=== PATIENT | female | born 1955 | race Caucasian/White ===

== ENCOUNTER 2017-07-18 18:37 | Emergency (ER) | payer BC ==
[2017-07-18] MEDS ORDERED: ONDANSETRON HCL IV 4 MG/2 ML VIAL IVP ONE (19:44)
[2017-07-18] MEDS ORDERED: 0.9 % SODIUM CHLORIDE 1000ML 1,000 ML IV SCH (19:45)
--- NOTE | 2017-07-18 19:49 | Emergency Department Record ---
History of Present Illness - General Chief Complaint: Dizziness Stated Complaint: DOESN'T FEEL WELL/HIGH SUGAR Time Seen by Provider: 07/18/17 19:28 Source: Patient Mode of Arrival: Ambulatory Limitations: No limitations - History of Present Illness Initial Comments: 61 yo female presents to ED with a CC of nausea and "elevated blood sugar" that she has been unable to drop at home with her home diabetes medications (januvia , nagelitide). Patient denies chest pain, difficulty breathing, or abdominal pain symptoms. Patient denies fevers, chills, or recent illness. 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 MD Complaint: Other Onset/Timin -: Hour(s) Timing: Sudden onset, Constant Description: Lightheadedness History of Same: Yes History of Trauma: Yes Severity: Mild Improves With: Nothing Worsens With: Nothing - [place] Coma Scale Eye Response: (4) Open spontaneously Motor Response: (6) Obeys commands Verbal Response: (5) Oriented Yunior Total: 15 - Related Data Home Medications Medication Instructions Recorded Confirmed Last Taken Clonidine HCl 0.1 mg PO TID 07/18/17 07/18/17 Unknown Folic Acid [Folic Acid] 1 mg PO DAILY 07/18/17 07/18/17 Unknown Levothyroxine Sodium [Synthroid] 50 mcg PO DAILY 07/18/17 07/18/17 Unknown Nateglinide [Starlix] 120 mg PO ASDIR 07/18/17 07/18/17 Unknown Pentamidine Isethionate [Nebupent] 300 mg PO DAILY 07/18/17 07/18/17 Unknown Prednisone [Prednisone 5Mg] 5 mg PO DAILY 07/18/17 07/18/17 Unknown Sitagliptin Phosphate [Januvia] 25 mg PO DAILY 07/18/17 07/18/17 Unknown Previous Rx's Medication Instructions Recorded Promethazine HCl [Phenergan] 25 mg PO Q6H PRN #15 tablet 07/18/17 Allergies Allergy/AdvReac Type Severity Reaction Status Date / Time budesonide [From Symbicort] AdvReac DIZZINESS Verified 07/18/17 19:30 formoterol [From Symbicort] AdvReac DIZZINESS Verified 07/18/17 19:30 ibuprofen [From Motrin] AdvReac NAUSEA Verified 07/18/17 19:30 morphine AdvReac NAUSEA Verified 07/18/17 19:30 sulfamethoxazole AdvReac NAUSEA Verified 07/18/17 19:30 [From Bactrim] trimethoprim [From Bactrim] AdvReac NAUSEA Verified 07/18/17 19:30 Travel Screening - Travel/Exposure Within Last 30 Days Have you traveled within the last 30 days?: No Review of Systems Constitutional: Denies: Chills, Fever, Malaise, Night sweats Eyes: Denies: Eye discharge, Eye pain ENT: Denies: Congestion, Ear pain, Epistaxis Respiratory: Denies: Cough, Dyspnea Cardiovascular: Denies: Chest pain, Dyspnea on exertion Endocrine: Denies: Fatigue, Heat or cold intolerance Gastrointestinal: Reports: Nausea. Denies: Constipation, Vomiting Genitourinary: Denies: Incontinence, Retention Musculoskeletal: Denies: Arthralgia, Back pain, Gout, Joint swelling Skin: Denies: Bruising, Change in color Neurological: Denies: Abnormal gait, Confusion, Headache, Tingling Psychiatric: Denies: Anxiety Hematological/Lymphatic: Denies: Anemia, Blood Clots Past Medical History - SOCIAL HISTORY Smoking Status: Never smoker Alcohol Use: None Drug Use: None - RESPIRATORY Hx Respiratory Disorders: Yes Comment:: Bilateral Lung Transplant (08/2009) r/t pulmonary fibrosis - CARDIOVASCULAR Hx Cardio Disorders: Yes Hx Hypertension: Yes Comment:: murmur - NEURO Hx Neuro Disorders: No - GI Hx GI Disorders: Yes Hx Reflux: Yes - Hx Genitourinary Disorders: Yes Hx Renal Disease: Yes (CKD stage 4) - ENDOCRINE Hx Endocrine Disorders: Yes Hx Diabetes: Yes (DM2) Hx Thyroid Disease: Yes (Hypo) - MUSCULOSKELETAL Hx Musculoskeletal Disorders: No - PSYCH Hx Psych Problems: No - HEMATOLOGY/ONCOLOGY Hx Hematology/Oncology Disorders: Yes Hx Cancer: Yes (Precancerous skin (surgically removed)) Hx Chemotherapy: No Hx Radiation Therapy: No Family Medical History Any Significant Family History?: Yes Hx Diabetes: Father Hx HTN: Father Hx Resp Disorders: Mother, Brother/Sister *Resp Comment: Pulmonary Fibrosis Physical Exam - General General Appearance: Alert, Oriented x3, Cooperative, Moderate distress Limitations: No limitations - Head Head exam: Atraumatic, Normocephalic, Normal inspection Head exam detail: negative: Abrasion, Contusion, Mack's sign, General tenderness, Hematoma, Laceration - Eye Eye exam: Normal appearance. negative: Conjunctival injection, Periorbital swelling, Periorbital tenderness, Scleral icterus - ENT Ear exam: negative: Auricular hematoma, Auricular trauma Nasal Exam: negative: Active bleeding, Discharge, Dried blood Mouth exam: negative: Drooling, Laceration, Tongue elevation - Neck Neck exam: Normal inspection. negative: Meningismus, Tenderness - Respiratory Respiratory exam: Normal lung sounds bilaterally. negative: Respiratory distress, Rhonchi, Stridor, Wheezes - Cardiovascular Cardiovascular Exam: Regular rate, Normal rhythm, Normal heart sounds - GI/Abdominal GI/Abdominal exam: Soft. negative: Rebound, Rigid, Tenderness - Rectal Rectal exam: Deferred - exam: Deferred - Extremities Extremities exam: Normal inspection. negative: Calf tenderness, Pedal edema, Tenderness - Back Back exam: Denies: CVA tenderness (R), CVA tenderness (L) - Neurological Neurological exam: Alert, Normal gait, Oriented X3 - Psychiatric Psychiatric exam: Normal affect, Normal mood - Skin Skin exam: Normal color. negative: Abrasion Type of lesion: negative: abrasion Course Vital Signs 07/18/17 19:29 Temperature 98.4 F Pulse Rate 76 Respiratory 18 Rate Blood Pressure 187/81 Pulse Ox 98 - Reevaluation(s) Reevaluation #1: 07/18/17 20:15 EKG: NSR 70 Normal axis Normal intervals Artifact V4-V5, no acute ST-T wave changes Reevaluation #2: 07/18/17 20:50 Labs reviewed, Hgb 10.2, BUN 31/Creatinine 1.9 (at baseline). Troponin is negative, labs are otherwise grossly unremarkable for an acute process. Reevaluation #3: 07/18/17 20:54 Patient reassessed and reports that she is feeling much better. EKG and Troponin fail to demonstrate an acute cardiac etiology for her symptoms, and her symptoms are greatly improved with Phenergan. Patient was updated on all results and appears stable for discharge at this time with phenergan at home for her symptoms. Medical Decision Making - Lab Data Result diagrams: 07/18/17 20:01 07/18/17 20:01 Lab Results 07/18/17 Range/Units 19:19 POC Glucose 147 H (70-110) mg/dL Disposition Disposition: Discharge Clinical Impression: Nausea Hyperglycemia due to type 2 diabetes mellitus Qualifiers: Diabetes mellitus mcc insulin use: unspecified mcc insulin use status Qualified Code(s): E11.65 - Type 2 diabetes mellitus with hyperglycemia Disposition: Home, Self-Care Condition: (2) Stable Instructions: Acute Nausea and Vomiting (ED) Additional Instructions: Return to ED if your symptoms worsen or if you have any concerns. Phenergan as directed. Follow-up with your family doctor in 2-3 days as directed. Prescriptions: Promethazine HCl [Phenergan] 25 mg PO Q6H PRN #15 tablet PRN Reason: Nausea/Vomiting Forms: Patient Portal Access Time of Disposition: 20:57 Quality - Quality Measures Quality Measures: N/A - Blood Pressure Screening Does Patient Have Any of the Following: Active Dx of HTN Blood Pressure Classification: Pre-Hypertensive BP Reading Systolic Measurement: 175 Diastolic Measurement: 87 Screening for High Blood Pressure: Patient Exclusion, Hx of HTN [[id number]]
[2017-07-18 20:12] LABS: BASO % 0.2 % (0-6); GRAN % 72.2 % (47-80); HEMATOCRIT 28.9 % (35.0-47.0); HEMOGLOBIN 10.2 gm/dl (11.6-16.0); LYMPH % 17.6 % (16-45); MEAN CELL VOLUME 96.7 fl (81-97); MEAN CORPUSCULAR HEMOGLOBIN 34.1 pg (27-33); MEAN CORPUSCULAR HGB CONC 35.3 g/dl (32-36); MEAN PLATELET VOLUME 8.5 fl (7.4-10.4); PLATELET COUNT 185 K/uL (130-400); RED BLOOD COUNT 2.99 M/uL (3.80-5.40); RED CELL DISTRIBUTION WIDTH 13.3 % (11.5-14.5)
[2017-07-18] MEDS ORDERED: PROMETHAZINE HCL 12.5 MG in 0.9 % SODIUM CHLORIDE 100ML 100 ML IVPB ONE (20:31)
[2017-07-18 20:32] LABS: ACETONE,SERUM NEGATIVE (NEGATIVE)
[2017-07-18 20:32] LABS: URINE APPEARANCE CLEAR; URINE BILIRUBIN NEGATIVE (NEGATIVE); URINE BLOOD TRACE-I (NEGATIVE); URINE COLOR YELLOW; URINE GLUCOSE (UA) NEGATIVE (NEGATIVE); URINE KETONE NEGATIVE (NEGATIVE); URINE LEUKOCYTE ESTERASE NEGATIVE (NEGATIVE); URINE NITRITE NEGATIVE (NEGATIVE); URINE PROTEIN NEGATIVE (NEGATIVE); URINE UROBILINOGEN 0.2 E.U./dL (0.20 - 1.00)
[2017-07-18 20:34] LABS: ALB/GLOB RATIO 1.6 (1.1-1.8); ALBUMIN 4.1 g/dL (4.0-5.0); ALKALINE PHOSPHATASE 26 U/L (35-104); ALT/SGPT 11 U/L (<33); AST/SGOT 16 U/L (10.0-35.0); BLOOD UREA NITROGEN 31 mg/dL (8-23); CREATININE 1.9 mg/dL (0.5-0.9); EST GLOMERULAR FILTRATION RATE 28 mL/min; GLUCOSE,RANDOM 141 mg/dL (74-109); TOTAL PROTEIN 6.7 g/dL (6.6-8.7)
[2017-07-18 20:41] LABS: URINE EPITHELIAL CELLS 0 - 2 (FEW); URINE RBC 0 - 2 (NONE SEEN); URINE WBC 0 - 2 (0-2/hpf)
[2017-07-18] MEDS ORDERED: PROMETHAZINE HCL 25 MG TABLET PO ONE (20:53)
== END 2017-07-18 21:08 | disposition home or self-care (01) ==
LOC: ER 18:37
DX: E11.65 Type 2 diabetes mellitus with hyperglycemia (principal); R11.0 Nausea; R42 Dizziness and giddiness; I10 Essential (primary) hypertension; Z94.2 Lung transplant status
CPT/HCPCS: 99284 ×2; 96374; 96375; 82800; 85025; 84484; 80053; 36416; 81001; 82009; 82948; 93005; 93010; J2405; J2550; J7030

== ENCOUNTER 2017-12-16 15:00 | Emergency (ER) | payer BC | END 2017-12-16 15:10 | disposition left against medical advice (07) | LOC: ER 15:00 | DX: Z53.20 Procedure and treatment not carried out because of patient's decision for unspecified reasons (principal) ==

== ENCOUNTER 2019-07-30 11:47 | Emergency (ER) | payer BC ==
--- NOTE | 2019-07-30 12:29 | Emergency Department Record ---
History of Present Illness - General Chief Complaint: Hypertension Stated Complaint: HIGH BLOOD PRESSURE Time Seen by Provider: 07/30/19 11:53 Source: Patient, RN notes reviewed Mode of Arrival: Ambulatory - History of Present Illness Initial Comments: hypertension 212/85 and she is taking clonidine 0.3 TID and she has stage 4 kidney disease and a lung transplant in 2008 and her primary is Dr Pinedo at [facility] and the nurse in the office said to go to the ED. she is using lidocaine and tylenol for chest wall pain diagnosised at the [facility]. PMH DM ,hypothyroidism, Patient said she was at the [facility] 2 weeks ago and she was told she was anemic and hg 8 and she was placed on iron Timing: Awoke with symptoms History of Same: Yes History of Trauma: No Severity: Moderate Improves With: Nothing Worsens With: Nothing Associated Symptoms: Shortness of breath - [place] Coma Scale Eye Response: (4) Open spontaneously Motor Response: (6) Obeys commands Verbal Response: (5) Oriented Yunior Total: 15 - Related Data Home Medications Medication Instructions Recorded Confirmed Last Taken Acyclovir 200 mg PO BID 07/30/19 07/30/19 Unknown Azithromycin 250 mg PO ASDIR 07/30/19 07/30/19 Unknown Calcium Carbonate/Vitamin D3 1 each PO DAILY 07/30/19 07/30/19 Unknown [Calcium 600 + Vit D Tablet] Insulin Aspart [Novolog] 7 unit SQ WMEALS 07/30/19 07/30/19 07/30/19 Insulin Glargine,Hum.rec.anlog 24 unit SQ QAM 07/30/19 07/30/19 07/30/19 [Lantus Solostar] Itraconazole [Sporanox] 200 mg PO DAILY 07/30/19 07/30/19 Unknown Linagliptin [Tradjenta] 5 mg PO DAILY 07/30/19 07/30/19 Unknown Magnesium Oxide [Magnesium] 250 mg PO DAILY 07/30/19 07/30/19 Unknown Pentamidine Isethionate [Nebupent] 300 mg IH MONTHLY 07/30/19 07/30/19 Unknown Tacrolimus [Prograf] 0.5 mg PO QAM 07/30/19 07/30/19 Unknown Allergies Allergy/AdvReac Type Severity Reaction Status Date / Time budesonide [From Symbicort] AdvReac DIZZINESS Verified 07/30/19 11:54 formoterol [From Symbicort] AdvReac DIZZINESS Verified 07/30/19 11:54 ibuprofen [From Motrin] AdvReac NAUSEA Verified 07/30/19 11:54 morphine AdvReac NAUSEA Verified 07/30/19 11:54 sulfamethoxazole AdvReac NAUSEA Verified 07/30/19 11:54 [From Bactrim] trimethoprim [From Bactrim] AdvReac NAUSEA Verified 07/30/19 11:54 Travel Screening - Travel/Exposure Within Last 30 Days Have you traveled within the last 30 days?: No Review of Systems Reviewed: No additional complaints except as noted below Constitutional: Reports: As per HPI. Denies: Chills, Fever, Malaise, Night sweats, Weakness, Weight change Eyes: Reports: As per HPI. Denies: Eye discharge, Eye pain, Photophobia, Vision change ENT: Reports: As per HPI. Denies: Congestion, Dental pain, Ear pain, Epistaxis, Hearing loss, Throat pain Respiratory: Reports: As per HPI. Denies: Cough, Dyspnea, Hemoptysis, Stridor, Wheezes Cardiovascular: Reports: As per HPI, Chest pain. Denies: Arrhythmia, Dyspnea on exertion, Edema, Murmurs, Orthopnea, Palpitations, Paroxysmal nocturnal dyspnea, Rheumatic Fever, Syncope Endocrine: Reports: As per HPI. Denies: Fatigue, Heat or cold intolerance, Polydipsia, Polyuria Gastrointestinal: Reports: As per HPI. Denies: Abdominal pain, Constipation, Diarrhea, Hematemesis, Hematochezia, Melena, Nausea, Vomiting Genitourinary: Reports: As per HPI. Denies: Abnormal menses, Discharge, Dyspareunia, Dysuria, Frequency, Hematuria, Incontinence, Retention, Urgency Musculoskeletal: Reports: As per HPI. Denies: Arthralgia, Back pain, Gout, Joint swelling, Myalgia, Neck pain Skin: Reports: As per HPI. Denies: Bruising, Change in color, Change in hoffmann ir/nails, Lesions, Pruritus, Rash Neurological: Reports: As per HPI. Denies: Abnormal gait, Confusion, Headache, Numbness, Paresthesias, Seizure, Tingling, Tremors, Vertigo, Weakness Psychiatric: Reports: As per HPI. Denies: Anxiety, Auditory hallucinations, Depression, Homicidal thoughts, Suicidal thoughts, Visual hallucinations Hematological/Lymphatic: Reports: As per HPI. Denies: Anemia, Blood Clots, Easy bleeding, Easy bruising, Swollen glands Past Medical History - SOCIAL HISTORY Smoking Status: Never smoker Alcohol Use: None Drug Use: None - RESPIRATORY Hx Respiratory Disorders: Yes Comment:: Bilateral Lung Transplant (08/2009) r/t pulmonary fibrosis - CARDIOVASCULAR Hx Cardio Disorders: Yes Hx Hypertension: Yes Comment:: murmur - NEURO Hx Neuro Disorders: No - GI Hx GI Disorders: Yes Hx Reflux: Yes - Hx Genitourinary Disorders: Yes Hx Renal Disease: Yes (CKD stage 4) - ENDOCRINE Hx Endocrine Disorders: Yes Hx Diabetes: Yes (DM2) Hx Thyroid Disease: Yes (Hypo) - MUSCULOSKELETAL Hx Musculoskeletal Disorders: No - PSYCH Hx Psych Problems: No - HEMATOLOGY/ONCOLOGY Hx Hematology/Oncology Disorders: Yes Hx Cancer: Yes (Precancerous skin (surgically removed)) Hx Chemotherapy: No Hx Radiation Therapy: No Family Medical History Any Significant Family History?: Yes Hx Diabetes: Father Hx HTN: Father Hx Resp Disorders: Mother, Brother/Sister *Resp Comment: Pulmonary Fibrosis Physical Exam - General General Appearance: Alert, Oriented x3, Cooperative, No acute distress - Head Head exam: Normal inspection - Eye Eye exam: Normal appearance, PERRL Pupils: Normal accommodation - ENT ENT exam: Normal exam, Mucous membranes moist, Normal external ear exam, Normal orophraynx, TM's normal bilaterally Ear exam: Normal external inspection. negative: External canal tenderness Nasal Exam: Normal inspection. negative: Discharge, Sinus tenderness Mouth exam: Normal external inspection, Tongue normal Teeth exam: Normal inspection. negative: Dental caries Throat exam: Normal inspection. negative: Tonsillar erythema, Tonsillar exudate - Neck Neck exam: Normal inspection, Full ROM. negative: Tenderness - Respiratory Respiratory exam: Normal lung sounds bilaterally. negative: Respiratory distress - Cardiovascular Cardiovascular Exam: Regular rate, Normal rhythm, Normal heart sounds - GI/Abdominal GI/Abdominal exam: Soft, Normal bowel sounds. negative: Tenderness - Rectal Rectal exam: Deferred - exam: Deferred - Extremities Extremities exam: Normal inspection, Full ROM, Normal capillary refill. negative: Tenderness - Back Back exam: Reports: Normal inspection, Full ROM. Denies: Muscle spasm, Rash noted, Tenderness - Neurological Neurological exam: Alert, Normal gait, Oriented X3, Reflexes normal - Psychiatric Psychiatric exam: Normal affect, Normal mood - Skin Skin exam: Dry, Intact, Normal color, Warm Course Vital Signs 07/30/19 11:50 Temperature 97.7 F Pulse Rate 95 H Respiratory 20 Rate Blood Pressure 227/86 Pulse Ox 100 - Reevaluation(s) Reevaluation #1: while in the ED after the hydralazine shot she developed redness in her leg and they felt hot and she had chest pressure and palpations and EKG done with labs and her trop is elevated. 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 Mo and Dr Bhagat and will admit at [facility] when bed is available. Dr. Mo is accepting 07/30/19 16:24 Medical Decision Making - Data Complexity MDM Data: Labs Ordered and/or Reviewed (trop elevated 0.035 indeterminate,creat 3.0, hg 8.8), EKG Ordered and/or Reviewed (nsr, nonspecific st changes ) - Lab Data Result diagrams: 07/30/19 11:55 07/30/19 11:55 Disposition Clinical Impression: Elevated troponin Chest pain Qualifiers: Chest pain type: precordial pain Qualified Code(s): R07.2 - Precordial pain Anemia Qualifiers: Anemia type: unspecified type Qualified Code(s): D64.9 - Anemia, unspecified Renal failure Qualifiers: Renal failure chronicity: chronic Chronic kidney disease stage: stage 4 (severe) Qualified Code(s): N18.4 - Chronic kidney disease, stage 4 (severe) Disposition: Acute Care Hospital Transfer Condition: (2) Stable Forms: Patient Portal Access Time of Disposition: 16:26 Quality - Quality Measures Quality Measures: N/A - Blood Pressure Screening Does Patient Have Any of the Following: No, Active Dx of HTN Blood Pressure Classification: Pre-Hypertensive BP Reading Systolic Measurement: 227 Diastolic Measurement: 86 Screening for High Blood Pressure: Patient Exclusion, Hx of HTN [G9744]
[2019-07-30] MEDS ORDERED: HYDRALAZINE 20MG/ML VIAL IM ONE (12:44)
[2019-07-30] MEDS ORDERED: ASPIRIN 81 MG CHEWABLE TABLET PO ONE (14:31)
[2019-07-30] MEDS ORDERED: DIPHENHYDRAMINE HCL 50 MG/ML VIAL IVP ONE (14:36)
[2019-07-30] MEDS ORDERED: METHYLPREDNISOLONE SOD 40MG/VIAL IVP ONE (14:37)
[2019-07-30 14:58] LABS: ABSOLUTE NEUTROPHIL COUNT 3.73; BASO % 0.3 % (0-6); EOS % 1.8 % (0-6); GRAN % 61.6 % (47-80); HEMATOCRIT 27.3 % (35.0-47.0); HEMOGLOBIN 8.8 gm/dl (11.6-16.0); LYMPH % 25.1 % (16-45); MEAN CELL VOLUME 106.2 fl (81-97); MEAN CORPUSCULAR HEMOGLOBIN 34.2 pg (27-33); MEAN CORPUSCULAR HGB CONC 32.2 g/dl (32-36); MEAN PLATELET VOLUME 10.2 fl (7.4-10.4); MONO % 11.2 % (0-9); PLATELET COUNT 198 K/uL (130-400); RED BLOOD COUNT 2.57 M/uL (3.80-5.40); RED CELL DISTRIBUTION WIDTH 14.7 % (11.5-14.5); WHITE BLOOD COUNT W/O DIFF 6.1 K/uL (4.2-12.2)
== END 2019-07-30 18:19 | disposition short-term general hospital (02) ==
LOC: ER 11:47
DX: R79.89 Other specified abnormal findings of blood chemistry (principal); R07.2 Precordial pain; I12.9 Hypertensive chronic kidney disease with stage 1 through stage 4 chronic kidney disease, or unspecified chronic kidney disease; E11.22 Type 2 diabetes mellitus with diabetic chronic kidney disease; N18.4 Chronic kidney disease, stage 4 (severe); Z79.4 Long term (current) use of insulin; Z94.2 Lung transplant status
CPT/HCPCS: 36416; 80048; 82948; 84484; 85025; 85730; 93005; 93010; 96374; 96375; 99285; J1200; J2920

== ENCOUNTER 2019-11-12 06:10 | Day surgery (SDC) | payer BC ==
[2019-11-12] MEDS ORDERED: PROPOFOL 10 MG/ML VIAL IV ONE (06:11)
[2019-11-12] MEDS ORDERED: LIDOCAINE 2% MDV (20MG/ML) 20ML VIAL IV ONE (06:11)
--- NOTE | 2019-11-16 06:01 | Operative Note ---
SURGEON: Vipul Wood MD OPERATION: COLONOSCOPY. INDICATIONS: This is a 63-year-old female with history of lung transplant on tacrolimus with high risk for colorectal cancer who presented for screening colonoscopy. POSTOPERATIVE DIAGNOSES: 1. Left-sided colonic diverticulosis. 2. Otherwise normal colon although the bowel preparation was suboptimal. ANESTHESIA: Sedation is per Anesthesia. Pulse oximetry was monitored throughout the procedure to maintain O2 saturation of 90% or greater. Supplemental oxygen was administered via nasal cannula. Cardiac and vital signs were monitored throughout the duration of the procedure, and they were stable. The procedure of colonoscopy and risks and alternatives of the procedure, including the risk of bleeding and perforation, among others, were explained to the patient who voiced understanding and agreed to have the procedure done. Physical examination was performed, and the patient was found stable for sedation. PROCEDURE: The patient was placed in the left lateral position. Sedation was initiated. A digital rectal exam was performed and showed some mild external hemorrhoids with no palpable rectal masses. An Olympus PCF-180AL colonoscope was then inserted into the rectum under direct visualization. It was advanced to the cecum without difficulty. The ileocecal valve and appendiceal orifice were identified and photographed. The colonic mucosa was carefully examined upon introduction of the colonoscope. There were scattered diverticula noted in the sigmoid and descending colon. There were no other lesions noted. The bowel preparation was suboptimal, especially in the right colon. The colonoscope was then withdrawn while carefully examining the colonic mucosal surfaces. No other lesions were noted. In the rectum, retroflexion was performed and grade 1 internal hemorrhoids were noted. The colonoscope was then withdrawn and the procedure was terminated. The patient tolerated the procedure well without any immediate complications. The patient remained with stable vital signs and was transferred to the recovery room. RECOMMENDATIONS: 1. The patient should be on a high-fiber diet. 2. The patient is to have a repeat colonoscopy for screening 2 years given her high-risk state. Thank you for allowing me to participate in the care of your patient. ANSHU
== END 2019-11-12 08:08 | disposition home or self-care (01) ==
LOC: HOP 06:10
PROVIDERS: ATTEND Internal Medicine Gastroenterology
DX: Z12.11 Encounter for screening for malignant neoplasm of colon (principal); K57.30 Diverticulosis of large intestine without perforation or abscess without bleeding; Z94.2 Lung transplant status; E78.00 Pure hypercholesterolemia, unspecified; I10 Essential (primary) hypertension; E11.9 Type 2 diabetes mellitus without complications; Z79.4 Long term (current) use of insulin; E03.9 Hypothyroidism, unspecified
CPT/HCPCS: 00812; G0105